=== PATIENT | female | born 1950 | race Caucasian/White ===

== ENCOUNTER → 2017-03-14 | Outpatient (CLI) | payer OTHER ==
[~2017-03-14] MED LIST: ASCORBIC ACID100 MG PO; ASPIR 8181 M1 PO; HYZAAR 100-21 TABLET PO; IRON325 MG PO; KLOR-CON M2020 MEQ PO; LASIX40 MG PO; METFORMIN HCL500 M1 PO; MUCINEX1200 MG PO; PAIN RELIEF325 M1 PO; PANTOPRAZOLE SO40 MG PO; POLYETHYLENE GL17 GM PO; SILTUSSIN DM C473 ML PO; SIMETHICONE125 M1 PO; VITAMIN D-32000 UNI2 PO; ZOCOR20 MG PO
[2017-03-14 09:38] LABS: EOSINOPHIL (%) 2.1 % (0-5); EOSINOPHIL COUNT 0.1 K/uL (0-0.3); HEMATOCRIT 32.5 % (36.0-46.0); IMMATURE GRANULOCYTE (%) 0.3 % (0.0-0.7); INSTRUMENT ABS NEUTROPHIL CT 4.4 K/uL; LYMPHOCYTE COUNT 1.3 K/uL (1.0-2.8); MCH 28.6 PG (29.0-34.0); MCHC 32.9 G/DL (30.0-36.0); MCV 86.9 FL (83-99); MEAN PLAT.VOLUME 9.7 uM^3 (9.5-12.4); MONOCYTE (%) 10.5 % (3-12); MONOCYTE COUNT 0.7 K/uL (0-0.8); NEUTROPHIL (%) 66.3 % (45-76); NEUTROPHIL COUNT 4.4 K/uL (1.8-6.4); PLATELET COUNT 281 K/uL (156-360); RBC DIS.WIDTH-CV 12.7 % (11.8-14.6); RBC DIS.WIDTH-SD 40.4 % (39-53); RED BLOOD COUNT 3.74 M/uL (3.80-5.20); WHITE BLOOD COUNT 6.6 K/uL (4.1-10.2)
[2017-03-14 09:47] LABS: POINT-OF-CARE METER ID UU14174212
[2017-03-14 09:47] LABS: INTER. NORMALIZED RATIO 0.9; PROTHROMBIN TIME 9.6 (9.2-11.2); PTT 26.6 (25-32)
[2017-03-14 14:07] LABS: ABS NEUTROPHIL COUNT 5.6; EOSINOPHIL ABS CT 0.1; PLAT.SUFFICIENCY ADEQUATE
[2017-03-17 15:43] LABS: Flow Number of Markers 24 (()); Flow Spec Viability 56 % (()); Flow Specimen Type BONE MARROW (())
== END | disposition home or self-care (01) ==
LOC: OPR 03-11 10:00 → EDSTATUS 09:00 → OPR 09:00
PROVIDERS: Internal Medicine Medical Oncology
PROC: 0QB33ZX Excision of Left Pelvic Bone, Percutaneous Approach, Diagnostic (ICD-10-PCS; principal; 2017-03-14)
DX: D47.2 Monoclonal gammopathy (principal); D50.9 Iron deficiency anemia, unspecified
CPT/HCPCS: 77012; 82948; 85007; 85025; 85610; 85730; 85999; 88184 90; 88185 90; 88189 90; J3010

== ENCOUNTER → 2017-04-11 | Outpatient (CLI) | payer OTHER ==
[~2017-04-11] VITALS: Ht 152.4 cm; Wt 77.6 kg
[2017-04-11 09:14] LABS: BASOPHIL COUNT 0.1 K/uL (0-0.1); EOSINOPHIL (%) 1.3 % (0-5); EOSINOPHIL COUNT 0.1 K/uL (0-0.3); HEMATOCRIT 35.4 % (36.0-46.0); IMMATURE GRANULOCYTE (%) 0.5 % (0.0-0.7); LYMPHOCYTE COUNT 1.7 K/uL (1.0-2.8); MCH 28.4 PG (29.0-34.0); MCHC 32.8 G/DL (30.0-36.0); MCV 86.8 FL (83-99); MEAN PLAT.VOLUME 9.5 uM^3 (9.5-12.4); MONOCYTE (%) 10.5 % (3-12); MONOCYTE COUNT 0.8 K/uL (0-0.8); NEUTROPHIL (%) 65.5 % (45-76); PLATELET COUNT 282 K/uL (156-360); RED BLOOD COUNT 4.08 M/uL (3.80-5.20); WHITE BLOOD COUNT 7.7 K/uL (4.1-10.2)
[2017-04-11 09:34] LABS: POINT-OF-CARE METER ID UU13113694
[2017-04-11 12:01] LABS: PLAT.SUFFICIENCY ADEQUATE; POIKILOCYTOSIS 1+
== END | disposition home or self-care (01) ==
LOC: OPR 03-31 10:00 → EDSTATUS 03-31 10:00 → OPR 04-09 10:00
PROVIDERS: Internal Medicine Medical Oncology
DX: D47.2 Monoclonal gammopathy (principal); I10 Essential (primary) hypertension; E11.9 Type 2 diabetes mellitus without complications; K21.9 Gastro-esophageal reflux disease without esophagitis; D50.9 Iron deficiency anemia, unspecified; Z79.84 Long term (current) use of oral hypoglycemic drugs; Z79.82 Long term (current) use of aspirin
CPT/HCPCS: 38221; G0364; 77012; 82948; 85025; J3010

== ENCOUNTER 2017-07-10 12:12 | Emergency (ER) | payer OTHER ==
[~2017-07-10] VITALS: Ht 152.4 cm; Wt 70.1 kg
[2017-07-10 14:04] LABS: HEMATOCRIT 29.8 % (36.0-46.0); MCH 28.9 PG (29.0-34.0); MCHC 32.2 G/DL (30.0-36.0); MCV 89.8 FL (83-99); MEAN PLAT.VOLUME 9.6 uM^3 (9.5-12.4); PLATELET COUNT 386 K/uL (156-360); RBC DIS.WIDTH-SD 45.7 % (39-53); RED BLOOD COUNT 3.32 M/uL (3.80-5.20); WHITE BLOOD COUNT 11.9 K/uL (4.1-10.2)
[2017-07-10 14:12] LABS: CHLORIDE 99 mEq/L (99-109); POTASSIUM 3.4 mEq/L (3.7-5.4); SODIUM 139 mEq/L (136-147)
[2017-07-10 14:14] LABS: GLUCOSE 115 mg/dL (70-99)
[2017-07-10 14:15] LABS: ANION GAP 13 MEQ/L (2-14)
[2017-07-10 14:18] LABS: GFR ESTIMATE (CALCULATED) 53 mL/min/; UREA NITROGEN (BUN) 25 mg/dL (9-23)
[2017-07-10] MEDS ORDERED: KEFLEX500 MG PO (15:02)
[2017-07-10 15:23] VITALS: BP 99/72
== END 2017-07-10 15:25 | disposition home or self-care (01) ==
LOC: EME 12:12
PROVIDERS: Emergency Medicine
PROC: 2Y41X5Z Packing of Nasal Region using Packing Material (ICD-10-PCS; principal; 2017-07-10)
DX: R04.0 Epistaxis (principal); I10 Essential (primary) hypertension; Z79.82 Long term (current) use of aspirin; Z79.84 Long term (current) use of oral hypoglycemic drugs
CPT/HCPCS: 80048; 85027; 99281; 99284

== ENCOUNTER 2017-09-08 22:45 | Emergency (ER) | payer OTHER ==
[~2017-09-08] VITALS: Ht 147.3 cm; Wt 78.7 kg
[~2017-09-08 22:45] MED LIST changes: +KEFLEX500 MG PO
[2017-09-08 23:36] LABS: HEMATOCRIT 31.1 % (36.0-46.0); MCH 28.3 PG (29.0-34.0); MCHC 32.8 G/DL (30.0-36.0); MCV 86.4 FL (83-99); MEAN PLAT.VOLUME 9.6 uM^3 (9.5-12.4); PLATELET COUNT 310 K/uL (156-360); RBC DIS.WIDTH-CV 12.6 % (11.8-14.6); RBC DIS.WIDTH-SD 39.9 % (39-53); WHITE BLOOD COUNT 10.2 K/uL (4.1-10.2)
[2017-09-08 23:42] LABS: PROTHROMBIN TIME 11.7 SEC (10.2-12.9)
[2017-09-08 23:44] LABS: CHLORIDE 101 mEq/L (99-109); POTASSIUM 3.8 mEq/L (3.7-5.4); SODIUM 138 mEq/L (136-147)
[2017-09-08 23:46] LABS: GLUCOSE 157 mg/dL (70-99)
[2017-09-08 23:47] LABS: ANION GAP 11 MEQ/L (2-14)
[2017-09-08 23:50] LABS: GFR ESTIMATE (CALCULATED) 44 mL/min/; UREA NITROGEN (BUN) 24 mg/dL (9-23)
[2017-09-09] MEDS ORDERED: KEFLEX500 MG PO (00:48)
[2017-09-09 01:00] VITALS: BP 0/0
== END 2017-09-09 01:02 | disposition home or self-care (01) ==
LOC: EME 22:45
PROVIDERS: Physician Assistant
PROC: 2Y41X5Z Packing of Nasal Region using Packing Material (ICD-10-PCS; principal; 2017-09-09)
DX: R04.0 Epistaxis (principal); I10 Essential (primary) hypertension; K21.9 Gastro-esophageal reflux disease without esophagitis; R62.50 Unspecified lack of expected normal physiological development in childhood; Z79.82 Long term (current) use of aspirin
CPT/HCPCS: 80048; 85027; 85610; 99281; 99284

== ENCOUNTER 2017-10-07 01:29 | Emergency (ER) | payer OTHER ==
[~2017-10-07] VITALS: Ht 152.4 cm; Wt 72.2 kg
[~2017-10-07 01:29] MED LIST changes: +IRON325 M1 PO; -IRON325 MG PO
[2017-10-07 03:55] VITALS: BP 91/52
== END 2017-10-07 03:56 | disposition home or self-care (01) ==
LOC: EME 01:29
PROC: 2Y41X5Z Packing of Nasal Region using Packing Material (ICD-10-PCS; principal; 2017-10-07)
DX: R04.0 Epistaxis (principal); Z79.82 Long term (current) use of aspirin
CPT/HCPCS: 99281; 99284

== ENCOUNTER 2017-10-09 13:42 | Inpatient (IN) | payer OTHER ==
[~2017-10-09] VITALS: Ht 152.4 cm; Wt 74.1 kg
[2017-10-09 15:55] LABS: ALBUMIN 3.8 g/dL (3.2-4.8); CHLORIDE 101 mEq/L (99-109); POTASSIUM 4.3 mEq/L (3.7-5.4); SODIUM 137 mEq/L (136-147)
[2017-10-09 15:56] LABS: BASOPHIL (%) 0.4 % (0-1); EOSINOPHIL (%) 0.4 % (0-5); HEMATOCRIT 21.7 % (36.0-46.0); HEMOGLOBIN 6.9 G/DL (11.9-15.5); IMMATURE GRANULOCYTE (%) 0.4 % (0.0-0.7); LYMPHOCYTE COUNT 1.4 K/uL (1.0-2.8); MCH 28.3 PG (29.0-34.0); MCHC 31.8 G/DL (30.0-36.0); MCV 88.9 FL (83-99); MONOCYTE (%) 13.3 % (3-12); MONOCYTE COUNT 1.5 K/uL (0-0.8); NEUTROPHIL (%) 73.5 % (45-76); NEUTROPHIL COUNT 8.3 K/uL (1.8-6.4); PLATELET COUNT 329 K/uL (156-360); RBC DIS.WIDTH-CV 14.1 % (11.8-14.6); RBC DIS.WIDTH-SD 45.1 % (39-53); RED BLOOD COUNT 2.44 M/uL (3.80-5.20); WHITE BLOOD COUNT 11.3 K/uL (4.1-10.2)
[2017-10-09 15:57] LABS: GLUCOSE 118 mg/dL (70-99); TOTAL PROTEIN 6.8 g/dL (6.4-8.3)
[2017-10-09 15:59] LABS: TOTAL BILIRUBIN 0.3 mg/dL (0.0-1.0)
[2017-10-09 16:00] LABS: ALKALINE PHOSPHATASE 97 IU/L (3-129)
[2017-10-09 16:01] LABS: CREATININE 1.8 mg/dL (0.6-1.3); GFR ESTIMATE (CALCULATED) 30 mL/min/
[2017-10-09 16:02] LABS: AST (GOT) 13 IU/L (2-34); UREA NITROGEN (BUN) 27 mg/dL (9-23)
[2017-10-09 16:04] LABS: ALT (GPT) 14 IU/L (3-49)
[2017-10-09] MEDS ORDERED: GLUCOPHAGE500 MG PO (18:05)
[2017-10-09] MEDS ORDERED: VITAMIN C500 M6 PO (18:06)
[2017-10-09] MEDS ORDERED: OCEAN NASAL 0.645 ML BOTH NARES (18:07)
[2017-10-09] MEDS ORDERED: BEANO PO (18:10)
[2017-10-09 19:19] VITALS: BP 92/59
[2017-10-09 19:52] VITALS: BP 103/55
[2017-10-09 21:00] VITALS: BP 103/57
[2017-10-09 22:15] VITALS: BP 114/55
[2017-10-09 23:05] VITALS: BP 107/55
[2017-10-10] VITALS (8 sets, daily range): BP systolic 109–131; BP diastolic 53–65
[2017-10-10 02:15] LABS: HEMATOCRIT 24.7 % (36.0-46.0); HEMOGLOBIN 8.2 G/DL (11.9-15.5); MCV 87.3 FL (83-99)
[2017-10-10 07:57] LABS: HEMATOCRIT 25.3 % (36.0-46.0); HEMOGLOBIN 8.1 G/DL (11.9-15.5); MCV 88.2 FL (83-99)
[2017-10-10 08:02] LABS: INTER. NORMALIZED RATIO 1.1
[2017-10-10 08:04] LABS: PTT 24.6 SEC (25-37)
[2017-10-10 08:20] LABS: CHLORIDE 102 MEQ/L (99-109); GLUCOSE 103 mg/dL (70-99); SODIUM 140 MEQ/L (136-147); UREA NITROGEN (BUN) 14 mg/dL (9-23)
[2017-10-10 08:32] LABS: CREATININE 0.9 MG/DL (0.6-1.3); GFR ESTIMATE (CALCULATED) > 59 mL/min/; POTASSIUM 3.4 MEQ/L (3.7-5.4)
[2017-10-10 16:34] LABS: HEMATOCRIT 25.9 % (36.0-46.0); HEMOGLOBIN 8.6 G/DL (11.9-15.5); MCV 89.3 FL (83-99)
[2017-10-11 00:36] LABS: HEMATOCRIT 24.5 % (36.0-46.0); HEMOGLOBIN 8.1 G/DL (11.9-15.5); MCV 88.1 FL (83-99)
[2017-10-11 03:26] VITALS: BP 133/64
[2017-10-11 04:22] LABS: APPEARANCE CLEAR ((CLEAR)); BILIRUBIN NEGATIVE; BLOOD NEGATIVE; COLOR YELLOW ((YELLOW)); GLUCOSE (STRIP) NEGATIVE; KETONES NEGATIVE; LEUKOCYTES NEGATIVE; NITRITE NEGATIVE; PROTEIN (STRIP) NEGATIVE; SPECIFIC GRAVITY 1.013 (1.000-1.030); UCUL ADDED? NO; UROBILINOGEN 0.2 MG/DL (0.2-1.0)
[2017-10-11 08:02] VITALS: BP 121/66
[2017-10-11 09:52] LABS: HEMATOCRIT 25.9 % (36.0-46.0); HEMOGLOBIN 8.3 G/DL (11.9-15.5)
[2017-10-11 10:16] LABS: CHLORIDE 103 MEQ/L (99-109); CREATININE 0.8 MG/DL (0.6-1.3); GFR ESTIMATE (CALCULATED) > 59 mL/min/; GLUCOSE 121 mg/dL (70-99); POTASSIUM 3.8 MEQ/L (3.7-5.4); SODIUM 138 MEQ/L (136-147); UREA NITROGEN (BUN) 7 mg/dL (9-23)
== END 2017-10-11 12:53 | disposition home or self-care (01) | DRG 151 ==
LOC: EME 13:42 → EDOF 20:05 → 4EAST 20:05 → ENRESERV 20:08 → 4EAST 22:12
PROVIDERS: Emergency Medicine; Internal Medicine; Nurse Practitioner Family
DX: R04.0 Epistaxis (principal); N17.9 Acute kidney failure, unspecified; D62 Acute posthemorrhagic anemia; I95.9 Hypotension, unspecified; E11.9 Type 2 diabetes mellitus without complications; R00.0 Tachycardia, unspecified; E86.1 Hypovolemia; I87.2 Venous insufficiency (chronic) (peripheral); E66.9 Obesity, unspecified; E55.9 Vitamin D deficiency, unspecified; E78.5 Hyperlipidemia, unspecified; K21.9 Gastro-esophageal reflux disease without esophagitis; I10 Essential (primary) hypertension; Z90.710 Acquired absence of both cervix and uterus; Z79.84 Long term (current) use of oral hypoglycemic drugs; Z68.31 Body mass index [BMI] 31.0-31.9, adult
CPT/HCPCS: 71046; 80048; 80053; 81003; 82948; 85014; 85018; 85025; 85610; 85730; 86850; 86900; 86901; 86920; 87040; 87641; 93005; 99281; 99284; 99285; J7030; P9016